=== PATIENT | female | born 1975 | race Caucasian/White ===

== ENCOUNTER → 2019-02-25 11:48 | Outpatient (CLI) | payer MEDICAID ==
[2019-02-25 11:58] LABS: BASOPHILS 0.4 % (0-2); EOSINOPHILS 3.4 % (0-7); HEMATOCRIT 27.7 % (36.0-48.0); HEMOGLOBIN 8.4 g/dL (12-16); IMMATURE GRANULOCYTES 0.4 % (0-5); LYMPHOCYTES 20.3 % (15-50); MCH 28.4 pg (26.0-34.0); MCHC 30.3 g/dL (31.0-37.0); MCV 93.6 fL (80.0-100.0); MEAN PLATELET VOLUME 9.3 fL (7.4-10.4); MONOCYTES 10.8 % (2-11); NEUTROPHILS 64.7 % (40-80); PLATELET COUNT 581 10x3/uL (130-400); RBC 2.96 10x6/uL (4.00-5.40); RDW 15.6 % (11.5-14.5); WBC 7.9 10x3/uL (4.8-10.8)
[2019-02-25 12:20] LABS: CREATININE - SERUM 0.7 mg/dL (0.6-1.3); VANCOMYCIN - TROUGH 12.2 ug/mL (10.0-20.0)
== END | disposition home or self-care (01) ==
LOC: D.LABREF 11:48
DX: L03.90 Cellulitis, unspecified (principal); C51.9 Malignant neoplasm of vulva, unspecified

== ENCOUNTER → 2019-03-04 12:40 | Outpatient (CLI) | payer MEDICAID ==
[2019-03-04 13:20] LABS: BASOPHILS 0.6 % (0-2); HEMATOCRIT 25.4 % (36.0-48.0); HEMOGLOBIN 7.7 g/dL (12-16); MCH 28.1 pg (26.0-34.0); MCHC 30.3 g/dL (31.0-37.0); MCV 92.7 fL (80.0-100.0); MEAN PLATELET VOLUME 9.4 fL (7.4-10.4); NEUTROPHILS 50.4 % (40-80); PLATELET COUNT 504 10x3/uL (130-400); RBC 2.74 10x6/uL (4.00-5.40)
[2019-03-04 13:33] LABS: CREATININE - SERUM 0.9 mg/dL (0.6-1.3); VANCOMYCIN - TROUGH 12.7 ug/mL (10.0-20.0)
== END | disposition home or self-care (01) ==
LOC: D.LABREF 12:40
PROVIDERS: ATTEND Internal Medicine
DX: I96 Gangrene, not elsewhere classified (principal); L03.115 Cellulitis of right lower limb

== ENCOUNTER → 2019-03-11 10:09 | Outpatient (CLI) | payer MEDICAID ==
[2019-03-11 10:36] LABS: BASOPHILS 0.5 % (0-2); CREATININE - SERUM 0.8 mg/dL (0.6-1.3); EOSINOPHILS 5.1 % (0-7); HEMATOCRIT 29.7 % (36.0-48.0); HEMOGLOBIN 8.8 g/dL (12-16); IMMATURE GRANULOCYTES 0.3 % (0-5); LYMPHOCYTES 23.7 % (15-50); MCH 27.2 pg (26.0-34.0); MCHC 29.6 g/dL (31.0-37.0); MCV 91.7 fL (80.0-100.0); MEAN PLATELET VOLUME 9.1 fL (7.4-10.4); MONOCYTES 11.4 % (2-11); RBC 3.24 10x6/uL (4.00-5.40); VANCOMYCIN - TROUGH 19.7 ug/mL (10.0-20.0); WBC 7.6 10x3/uL (4.8-10.8)
[2019-03-11 10:41] LABS: PLATELET COUNT 673 10x3/uL (130-400)
== END | disposition home or self-care (01) ==
LOC: D.LABREF 10:09
PROVIDERS: ATTEND Internal Medicine
DX: I96 Gangrene, not elsewhere classified (principal); L03.115 Cellulitis of right lower limb; L02.415 Cutaneous abscess of right lower limb; Z51.81 Encounter for therapeutic drug level monitoring

== ENCOUNTER → 2019-03-19 12:40 | Outpatient (CLI) | payer MEDICAID ==
[2019-03-19 13:55] LABS: EOSINOPHILS 3.6 % (0-7); HEMOGLOBIN 8.6 g/dL (12-16); IMMATURE GRANULOCYTES 0.5 % (0-5); LYMPHOCYTES 19.6 % (15-50); MCH 27.6 pg (26.0-34.0); MCHC 30.7 g/dL (31.0-37.0); MCV 89.7 fL (80.0-100.0); MEAN PLATELET VOLUME 9.1 fL (7.4-10.4); NEUTROPHILS 64.3 % (40-80); RBC 3.12 10x6/uL (4.00-5.40); RDW 14.9 % (11.5-14.5); VANCOMYCIN - TROUGH 18.2 ug/mL (10.0-20.0); WBC 5.8 10x3/uL (4.8-10.8)
[2019-03-19 14:00] LABS: PLATELET COUNT 375 10x3/uL (130-400)
== END | disposition home or self-care (01) ==
LOC: D.LABREF 12:40
PROVIDERS: ATTEND Internal Medicine
DX: I96 Gangrene, not elsewhere classified (principal); L03.115 Cellulitis of right lower limb